=== PATIENT | female | born 1990 | race Two or more races ===

== ENCOUNTER 2022-01-19 12:48 | Emergency (ER) | payer OTHER ==
[~2022-01-19] VITALS: Ht 160 cm; Wt 65.8 kg
[2022-01-19 12:57] VITALS: BP 121/64
--- NOTE | 2022-01-19 12:58 | NUR ---
PT AMBULATED TO BED 9
--- NOTE | 2022-01-19 13:00 | NUR ---
31 y/o F BIB self from home c/o chest pain x 1 day. Patient A&Ox4, ambulatory, states mid sternal, 01/02, tightness/pressure/intermittent, radiating to left shoulder. Patient states had loop chip recorder placed in 05/2021 for recurrent syncope episodes. Pt states blurry vision, dizziness, chills, intermittent nausea. 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 Patient states compliant with beta jessica medication. Denies fever, headache, abdominal pain, dysuria. Bed locked in lowest position, side rails x 1. 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
--- NOTE | 2022-01-19 13:26 | NUR ---
Blood sample collected, handed to CPT Jane at ER bedside
[2022-01-19 13:38] LABS: BASOPHILS # (AUTO) 0.2 K/uL (0.00-0.22); BASOPHILS % (AUTO) 2.7 % (0.0-2.0); EOSINOPHILS # (AUTO) 0.4 K/uL (0-0.4); EOSINOPHILS % (AUTO) 6.2 % (0.0-4.0); HEMATOCRIT 34.8 % (36-48); HEMOGLOBIN 11.3 g/dL (12.0-16.0); LYMPHOCYTES # (AUTO) 1.6 K/uL (2.5-16.5); LYMPHOCYTES % (AUTO) 22.4 % (20.5-51.1); MEAN CORPUSCULAR HEMOGLOBIN 26 pg (27-31); MEAN CORPUSCULAR HGB CONC 33 g/dL (33-37); MEAN CORPUSCULAR VOLUME 80.5 fL (80-94); MONOCYTES # (AUTO) 0.4 K/uL (0.8-1.0); MONOCYTES % (AUTO) 6.2 % (1.7-9.3); NEUTROPHILS # (AUTO) 4.4 K/uL (1.8-7.7); NEUTROPHILS % (AUTO) 62.5 % (42.2-75.2); PLATELET COUNT (AUTO) 239 K/uL (140-450); RED BLOOD CELL COUNT(AUTO) 4.32 MIL/uL (4.20-5.40); RED CELL DISTRIBUTION WIDTH 14.4 % (11.6-13.7)
[2022-01-19] MEDS ORDERED: NACL 0.9% 1,000 ML IV ONE (14:05)
[2022-01-19 14:08] LABS: ALBUMIN 3.6 g/dL (3.4-5.0); ANION GAP 9.2 (8-16); CARBON DIOXIDE 28.8 mmol/L (21-32); CREATININE 0.8 mg/dL (0.6-1.3); TOTAL BILIRUBIN 0.6 mg/dL (0.0-1.0)
[2022-01-19 14:20] LABS: PROTHROMBIN TIME 10.2 secs (10.8-13.4)
[2022-01-19 15:40] VITALS: BP 118/61
--- NOTE | 2022-01-19 15:40 | NUR ---
Patient discharged with v/s stable. Written and verbal after care instructions given and explained. Patient verbalized understanding. Ambulatory with steady gait. All questions addressed prior to discharge. Advised to follow up with PMD. Lab and RAD results copy handed to patient.
== END 2022-01-19 15:40 | disposition home or self-care (01) ==
LOC: MED 12:48
DX: R07.9 Chest pain, unspecified (principal); R42 Dizziness and giddiness; R55 Syncope and collapse; Z88.5 Allergy status to narcotic agent
CPT/HCPCS: 36415; 71045; 80053; 83880; 84484; 85025; 85610; 85730; 93005; 96360; 99285; J7030; Q0092